=== PATIENT | male | born 1960 | race Caucasian/White ===

== ENCOUNTER 2019-01-31 21:14 | Observation (INO) ==
[2019-01-31 22:12] LABS: Basophils % 0.2 %; Eosinophils # 0.4 K/mcL (0.0-0.6); Eosinophils % 3.1 %; Hematocrit 35.8 % (37.5-50.1); Hemoglobin 12.6 g/dL (12.9-16.9); Immature Granulocytes % 0.5 % (0-4); Lymphocytes # 2.2 K/mcL (0.6-4.6); Lymphocytes % 16.6 %; Mean Corpuscular HGB Conc 35.2 g/dL (31.6-35.5); Mean Corpuscular Hemoglobin 32.5 pg (28.0-33.3); Mean Corpuscular Volume 92.3 fL (83.0-100.0); Mean Platelet Volume 9.2 fL (9.4-12.4); Monocytes # 1.1 K/mcL (0.0-1.3); Monocytes % 8.2 %; Neutrophils # 9.4 K/mcL (1.6-8.9); Platelet Count 335 K/mcL (140-400); Red Blood Count 3.88 M/mcL (4.19-5.50); Red Cell Distribution Width 13.4 % (11.5-14.5); Segmented Neutrophils % 71.4 %; White Blood Count 13.2 K/mcL (4.3-11.1)
[2019-01-31] MEDS ORDERED: Isovue-370 500 ML BOTTLE IVP ONE (22:21)
[2019-01-31 22:22] LABS: Activated Partial Thrombo Time 47.1 Seconds (26.0-36.0)
[2019-01-31 22:25] LABS: INR 1.9; Prothrombin Time 21.2 Seconds (9.4-12.1)
--- NOTE | 2019-01-31 22:25 | Emergency Department Note ---
Disposition Clinical Impression: Acute kidney injury, History of deep vein thrombosis (DVT) of lower extremity Urinary tract infection Qualifiers: Urinary tract infection type: site unspecified Hematuria presence: with hematuria Qualified Code(s): N39.0 - Urinary tract infection, site not specified; R31.9 - Hematuria, unspecified Disposition: Admitted As Inpatient Condition: Good Time of Disposition: 01:39 General Adult HPI - General Chief complaint: ED General Medical Stated complaint: RLE pain (DVT)/ abd pain Time Seen by Provider: 01/31/19 21:32 Source: patient, family () Mode of arrival: ambulatory Limitations: no limitations Nursing Notes Reviewed: Yes Vital Signs Reviewed: Yes - History of Present Illness HPI Narrative: 58-year-old male history of hypertension and recent diagnosis of deep vein thrombosis in the right leg 1 week ago presents emergency department with continued pain as well as abdominal cramping. He has poor insight into his medical conditions. States a few weeks ago he had a stent placed in his kidney. Approximately 10 days ago develop leg swelling and was diagnosed with the deep vein thrombosis. He was admitted to the hospital and started on Xarelto. Over the past 3 days sees had abdominal cramping and chest discomfort with some shor tness of breath. Denies any injury or trauma. He says blood in his urine but this was a preceding the diagnosis of blood clot. Denies any hemoptysis, hematemesis or bloody stool. Reports family history of blood clots in his mother and sister but they have in he was never formally tested he reports. No history of cardiac ischemic disease. Former smoker 3 years ago. Patient has been on testosterone in the past and recently discontinued given the new blood clot. He follows with his primary care provider Dr. Gee. Pain Scale: 10 - Related Data Home Medications Medication Instructions Recorded Confirmed Aspirin Enteric Coated [Aspirin EC] 81 mg PO DAILY 12/19/15 01/25/19 Cholecalciferol (Vitamin D3) 10,000 unit PO DAILY 12/19/15 01/25/19 [Vitamin D3] Lisinopril [Zestril] 40 mg PO DAILY 12/19/15 01/25/19 SUMAtriptan Succinate [Imitrex] 100 mg PO DAILY PRN 12/19/15 01/25/19 Topiramate [Topamax] 25 mg PO HS 12/19/15 01/25/19 Citalopram Hydrobromide [Celexa] 40 mg PO DAILY 05/31/17 01/25/19 Gabapentin [Neurontin] 600 mg PO TID 05/31/17 01/25/19 Hydrochlorothiazide [Microzide] 12.5 mg PO DAILY 09/15/18 01/25/19 Omeprazole [PriLOSEC] 40 mg PO DAILY 09/15/18 01/25/19 Amlodipine Besylate 5 mg PO BID 01/23/19 01/25/19 BuPROPion XL (24 HR) [Wellbutrin 150 mg PO QAM 01/23/19 01/25/19 Xl] traZODone [TraZODone] 50 mg PO HS 01/23/19 01/25/19 Simvastatin [Zocor] 20 mg PO HS 01/24/19 01/25/19 Tiotropium [Spiriva] 18 mcg IH DAILY 01/24/19 01/25/19 Amitriptyline [Elavil] 25 mg PO HS 01/25/19 01/25/19 Previous Rx's Medication Instructions Recorded Rivaroxaban [Xarelto] 1 dose PO AD 30 Days pack 01/26/19 Allergies Allergy/AdvReac Type Severity Reaction Status Date / Time latex Allergy Hives Verified 01/24/19 20:34 Penicillins Allergy Hives Verified 01/24/19 20:34 All systems ED: reviewed and negative except as stated. Review of Systems: As Per HPI Constitutional: Denies: fever ENT ED: Denies: congestion Cardiovascular: Reports: chest pain Respiratory: Reports: dyspnea. Denies: cough Gastrointestinal: Reports: abdominal pain. Denies: nausea, vomiting, hematemesis, melena, hematochezia Genitourinary: Reports: hematuria Musculoskeletal: Reports: myalgia. Denies: back pain Hematological/Lymphatic: Reports: easy bleeding Past Medical History - Past Medical History Attestation: Yes The following information was validated with the patient. Source: patient Medical history: Reports: COPD, coronary artery disease, hypertension, kidney stones, migraine, renal disease, other Surgical history: Reports: appendectomy, arthroscopy, cholecystectomy, herniorrhaphy, orthopedic, other, vasectomy Psychiatric history: Reports: no psych history - Social History Smoking Status: Former smoker Smokeless Tobacco Status: No Alcohol use: Reports: none Drug use: Reports: none Physical Exam - General Limitations: no limitations General appearance: alert, in no apparent distress - Head Head exam: atraumatic, normocephalic, normal inspection - Eye Eye exam: Present: normal appearance, EOMI. Absent: scleral icterus - ENT ENT exam: normal exam, normal oropharynx, mucous membranes moist - Neck Neck exam: Present: normal inspection, full ROM, trachea midline - Chest Chest inspection: Present: normal inspection, symmetric chest wall rise. Absent: tenderness - Respiratory Respiratory exam: Present: normal lung sounds bilaterally. Absent: respiratory distress, wheezes - Cardiovascular Cardiovascular exam: Present: regular rate, normal rhythm, normal heart sounds - Expanded Cardiovascular Exam Peripheral pulses: 2+: radial (R), radial (L), dorsalis pedis (R), dorsalis pedis (L) - Abdominal Exam Abdominal exam: Present: soft, tenderness, normal bowel sounds. Absent: Non- Tender, distention, guarding, rebound, rigidity, ascites Abdominal tenderness: Present: diffuse - Extremities Exam Extremities exam: Present: normal inspection, full ROM, normal capillary refill, calf tenderness (Right). Absent: tenderness, pedal edema - Neurological Exam Neurological exam: Present: alert, oriented X3 - Psychiatric Psychiatric exam: Present: normal affect, normal mood - Skin Skin exam: Present: warm, dry, intact, normal color. Absent: rash, cyanosis, diaphoresis Course Course Narrative: Patient presents with complaints of pain for the past few days since starting Xarelto. Pains in the right chest wall and abdomen. Denies any G.I. bleed symptoms or injury. Concern for possible spontaneous bleed will obtain CT scan and blood work evaluation. He does have some obvious hematuria but states this was prior to his initiation of the anticoagulant. Disposition pending workup. - Reevaluation(s) Reevaluation #1: Review of his labs shows a mild leukocytosis. His urinalysis shows gross hematuria but there is some bacteria noted compared to urinalysis performed se veral days ago. Will treat with Levaquin at this time for possible urinary tract infection. Review the rest of his labs shows acute kidney injury. His creatinine significantly elevated at 2 does double from his baseline. This is likely prerenal he has been receiving fluids. At this time recommendation for admission. His abdominal cramping and chest discomfort with unknown etiology. CT scan the abdomen did not reveal any concern for intra-abdominal etiologies such as bleed. Recommendation for admission and continued monitoring. - Consultations Consultation #1: Spoke with on-call hospitalist sintia Lay to admit for acute kidney injury, history of deep vein thrombosis, ureteral stent and UTI. Requests for blood cultures and lactate. Recommendation for urology consultation on the floor Vital Signs Temperature 97.7 F 01/31/19 21:18 Pulse Rate 81 01/31/19 21:18 Respiratory Rate 20 01/31/19 21:18 Blood Pressure 127/74 01/31/19 21:18 O2 Sat by Pulse Oximetry 96 01/31/19 21:18 Temperature 97.7 F 01/31/19 21:18 Pulse Rate 81 01/31/19 21:18 Respiratory Rate 20 01/31/19 21:18 Blood Pressure 127/74 01/31/19 21:18 O2 Sat by Pulse Oximetry 96 01/31/19 21:18 Oxygen Delivery Oxygen Delivery Room Air Medical Decision Making - MDM Narrative Medical decision making narrative: Patient was discussed with my attending physician who agrees with ED management and final disposition. They independently evaluated the patient. Please refer to their attestation to this encounter for additional information. This note was generated by [employer] voice recognition software and as a result grammatical or spelling errors may occur using this program. - Medical Records Medical records reviewed: Yes I reviewed the patient's medical records. - Lab Data Lab results reviewed: Yes I reviewed the patient's lab results. Result diagrams: 01/31/19 21:47 01/31/19 21:47 Lab Results 01/31/19 01/31/19 01/31/19 Range/Units 21:47 21:47 21:47 WBC 13.2 H (4.3-11.1) K/mcL RBC 3.88 L (4.19-5.50) M/mcL Hgb 12.6 L (12.9-16.9) g/dL Hct 35.8 L (37.5-50.1) % MCV 92.3 (83.0-100.0) fL MCH 32.5 (28.0-33.3) pg MCHC 35.2 (31.6-35.5) g/dL RDW 13.4 (11.5-14.5) % Plt Count 335 (140-400) K/mcL MPV 9.2 L (9.4-12.4) fL Immature Gran % 0.5 (0-4) % Seg Neutrophils % 71.4 % Lymphocytes % 16.6 % Monocytes % 8.2 % Eosinophils % 3.1 % Basophils % 0.2 % Neutrophils # 9.4 H (1.6-8.9) K/mcL Lymphocytes # 2.2 (0.6-4.6) K/mcL Monocytes # 1.1 (0.0-1.3) K/mcL Eosinophils # 0.4 (0.0-0.6) K/mcL Basophils # 0.0 (0.0-0.2) K/mcL PT 21.2 H D (9.4-12.1) Seconds INR 1.9 D APTT 47.1 H (26.0-36.0) Seconds Sodium 135 L (136-145) mEq/L Potassium 4.1 (3.5-5.1) mEq/L Chloride 102 (98-107) mEq/L Carbon Dioxide 22 L (23-29) mEq/L BUN 43 H (6-20) mg/dL Creatinine 2.06 H (0.70-1.30) mg/dL Est GFR ( Amer) 40 L (> 60) Est GFR (Non-Af Amer) 33 L (> 60) BUN/Creatinine Ratio 21 (6-26) Glucose 119 H (70-105) mg/dL Calculated Osmolality 292 (280-300) Calcium 9.8 (8.6-10.3) mg/dL Total Bilirubin 0.3 (0.3-1.0) mg/dL AST 20 (13-39) Units/L ALT 25 (7-52) Units/L Alkaline Phosphatase 66 (34-104) Units/L Serum Total Protein 7.3 (6.4-8.9) g/dL Albumin 4.6 (3.5-5.7) g/dL Globulin 2.7 (2.4-3.5) g/dL Albumin/Globulin Ratio 1.7 (1.1-2.2) Ur Specimen Adequacy Urine Color (Yellow) Urine Clarity (Clear) Urine pH (5.0-8.0) pH Units Ur Specific [place] (1.010-1.025) Urine Protein (Neg-Trace) mg/dL Urine Glucose (UA) (Normal) mg/dL Urine Ketones (Negative) mg/dL Urine Blood (Negative) Urine Nitrite (Negative) Urine Bilirubin (Negative) Urine Urobilinogen (Normal) mg/dL Ur Leukocyte Esterase (Negative) Urine Microscopic RBC (0-3) per hpf Urine Microscopic WBC (0-3) per hpf Urine Bacteria (None-Few) per hpf Ur Culture Indicated? (NO) 01/31/19 Range/Units 21:47 WBC (4.3-11.1) K/mcL RBC (4.19-5.50) M/mcL Hgb (12.9-16.9) g/dL Hct (37.5-50.1) % MCV (83.0-100.0) fL MCH (28.0-33.3) pg MCHC (31.6-35.5) g/dL RDW (11.5-14.5) % Plt Count (140-400) K/mcL MPV (9.4-12.4) fL Immature Gran % (0-4) % Seg Neutrophils % % Lymphocytes % % Monocytes % % Eosinophils % % Basophils % % Neutrophils # (1.6-8.9) K/mcL Lymphocytes # (0.6-4.6) K/mcL Monocytes # (0.0-1.3) K/mcL Eosinophils # (0.0-0.6) K/mcL Basophils # (0.0-0.2) K/mcL PT (9.4-12.1) Seconds INR APTT (26.0-36.0) Seconds Sodium (136-145) mEq/L Potassium (3.5-5.1) mEq/L Chloride (98-107) mEq/L Carbon Dioxide (23-29) mEq/L BUN (6-20) mg/dL Creatinine (0.70-1.30) mg/dL Est GFR ( Amer) (> 60) Est GFR (Non-Af Amer) (> 60) BUN/Creatinine Ratio (6-26) Glucose (70-105) mg/dL Calculated Osmolality (280-300) Calcium (8.6-10.3) mg/dL Total Bilirubin (0.3-1.0) mg/dL AST (13-39) Units/L ALT (7-52) Units/L Alkaline Phosphatase (34-104) Units/L Serum Total Protein (6.4-8.9) g/dL Albumin (3.5-5.7) g/dL Globulin (2.4-3.5) g/dL Albumin/Globulin Ratio (1.1-2.2) Ur Specimen Adequacy See below A Urine Color Red A (Yellow) Urine Clarity Turbid A (Clear) Urine pH 5.5 (5.0-8.0) pH Units Ur Specific [place] 1.013 (1.010-1.025) Urine Protein >=300 H (Neg-Trace) mg/dL Urine Glucose (UA) Normal (Normal) mg/dL Urine Ketones Trace H (Negative) mg/dL Urine Blood Large H (Negative) Urine Nitrite Negative (Negative) Urine Bilirubin Moderate H (Negative) Urine Urobilinogen Normal (Normal) mg/dL Ur Leukocyte Esterase Small H (Negative) Urine Microscopic RBC TNTC H (0-3) per hpf Urine Microscopic WBC 15-30 H (0-3) per hpf Urine Bacteria Moderate H (None-Few) per hpf Ur Culture Indicated? YES A (NO) - Radiology Data Radiology results reviewed: Yes I reviewed the patient's radiology results. Abdomen/Pelvis CT 01/31/19 22:21 IMPRESSION: Left ureteral stent in place. Left nephrolithiasis. D/ / Roz Gonzalez Cha, MD / Roz Gonzalez Cha, MD Interpreting Provider: Roz Gonzalez Cha, MD Chest CT 01/31/19 22:22 IMPRESSION: No acute intrathoracic process identified. D/ / Roz Gonzalez Cha, MD / Roz Gonzalez Cha, MD Interpreting Provider: Roz Gonzalez Cha, MD - EKG Data EKG #1 EKG attestation: Yes I reviewed and interpreted this EKG. EKG results narrative: EKG performed 2251 normal sinus rhythm 72 beats per minute, normal axis, good R wave progression, no ST elevation or depression. Compared to prior EKG performed 09/13/2017 which shows similar consistent findings. No acute ischemic changes.
[2019-01-31 22:31] LABS: Albumin 4.6 g/dL (3.5-5.7); Albumin/Globulin Ratio 1.7 (1.1-2.2); Bilirubin,Total 0.3 mg/dL (0.3-1.0); Calcium 9.8 mg/dL (8.6-10.3); Globulin 2.7 g/dL (2.4-3.5); Potassium 4.1 mEq/L (3.5-5.1); Total Protein 7.3 g/dL (6.4-8.9)
[2019-01-31] MEDS ORDERED: 0.9 % Sodium Chloride 1,000 ML IVC ONE (22:45)
[2019-01-31 22:50] LABS: Bilirubin,Urine Moderate (Negative); Blood,Urine Large (Negative); Clarity,Urine Turbid (Clear); Color,Urine Red (Yellow); Glucose,Urine (UA) Normal (Normal); Ketones,Urine Trace mg/dL (Negative); Leukocyte Esterase,Urine Small (Negative); Nitrite,Urine Negative (Negative); PH,Urine 5.5 pH Units (5.0-8.0); Protein,Urine >=300 mg/dL (Neg-Trace); Specific Gravity,Urine 1.013 (1.010-1.025); Urobilinogen,Urine Normal (Normal)
[2019-01-31 22:51] LABS: Bacteria,Urine Moderate per hpf (None-Few)
[2019-01-31 22:52] LABS: RBC,Urine TNTC per hpf (0-3); WBC,Urine 15-30 per hpf (0-3)
[2019-01-31] MEDS ORDERED: Levofloxacin 750 MG/150 ML 750 MG/150 ML BAG IVPB ONE (23:26)
[2019-02-01] MEDS ORDERED: *HR* Morphine 2 MG/ML SYRINGE IVP ONE (00:21)
--- NOTE | 2019-02-01 01:37 | Emergency Department Note ---
Disposition Clinical Impression: Acute kidney injury, History of deep vein thrombosis (DVT) of lower extremity Urinary tract infection Qualifiers: Urinary tract infection type: site unspecified Hematuria presence: with hematuria Qualified Code(s): N39.0 - Urinary tract infection, site not specified Disposition: Admitted As Inpatient Condition: Good Time of Disposition: 01:39 General Adult HPI - General Chief complaint: ED General Medical Stated complaint: RLE pain (DVT)/ abd pain Time Seen by Provider: 01/31/19 21:32 Source: patient, family () Mode of arrival: ambulatory Limitations: no limitations Nursing Notes Reviewed: Yes Vital Signs Reviewed: Yes - History of Present Illness Pain Scale: 10 - Related Data Home Medications Medication Instructions Recorded Confirmed Aspirin Enteric Coated [Aspirin EC] 81 mg PO DAILY 12/19/15 02/01/19 Cholecalciferol (Vitamin D3) 10,000 unit PO DAILY 12/19/15 01/25/19 [Vitamin D3] Lisinopril [Zestril] 40 mg PO DAILY 12/19/15 02/01/19 SUMAtriptan Succinate [Imitrex] 100 mg PO DAILY PRN 12/19/15 02/01/19 Topiramate [Topamax] 25 mg PO HS 12/19/15 02/01/19 Citalopram Hydrobromide [Celexa] 40 mg PO DAILY 05/31/17 02/01/19 Gabapentin [Neurontin] 600 mg PO TID 05/31/17 02/01/19 Hydrochlorothiazide [Microzide] 12.5 mg PO DAILY 09/15/18 02/01/19 Omeprazole [PriLOSEC] 40 mg PO DAILY 09/15/18 02/01/19 Amlodipine Besylate 5 mg PO BID 01/23/19 02/01/19 BuPROPion XL (24 HR) [Wellbutrin 150 mg PO QAM 01/23/19 02/01/19 Xl] traZODone [TraZODone] 50 mg PO HS 01/23/19 02/01/19 Simvastatin [Zocor] 20 mg PO HS 01/24/19 02/01/19 Tiotropium [Spiriva] 18 mcg IH DAILY 01/24/19 02/01/19 Amitriptyline [Elavil] 25 mg PO HS 06/13/19 06/20/19 Previous Rx's Medication Instructions Recorded Rivaroxaban [Xarelto] 1 dose PO AD 30 Days pack 01/26/19 Allergies Allergy/AdvReac Type Severity Reaction Status Date / Time latex Allergy Hives Verified 01/24/19 20:34 Penicillins Allergy Hives Verified 01/24/19 20:34 Constitutional: Denies: fever ENT ED: Denies: congestion Cardiovascular: Reports: chest pain Respiratory: Reports: dyspnea. Denies: cough Gastrointestinal: Reports: abdominal pain. Denies: nausea, vomiting, hematemesis, melena, hematochezia Genitourinary: Reports: hematuria Musculoskeletal: Reports: myalgia. Denies: back pain Hematological/Lymphatic: Reports: easy bleeding Past Medical History - Past Medical History Medical history: Reports: COPD, coronary artery disease, hypertension, kidney stones, migraine, renal disease, other Surgical history: Reports: appendectomy, arthroscopy, cholecystectomy, herniorrhaphy, orthopedic, other, vasectomy Psychiatric history: Reports: no psych history - Social History Smoking Status: Former smoker Smokeless Tobacco Status: No Alcohol use: Reports: none Drug use: Reports: none Physical Exam - General Limitations: no limitations General appearance: alert, in no apparent distress Course Vital Signs Temperature 97.7 F 01/31/19 21:18 Pulse Rate 81 01/31/19 21:18 Respiratory Rate 20 01/31/19 21:18 Blood Pressure 127/74 01/31/19 21:18 O2 Sat by Pulse Oximetry 96 01/31/19 21:18 Temperature 97.9 F 02/01/19 03:36 Pulse Rate 67 02/01/19 03:36 Respiratory Rate 16 02/01/19 03:36 Blood Pressure 115/50 02/01/19 03:36 O2 Sat by Pulse Oximetry 93 02/01/19 03:36 Oxygen Delivery Oxygen Delivery Room Air Medical Decision Making - Medical Records Medical records reviewed: Yes I reviewed the patient's medical records. - Lab Data Lab results reviewed: Yes I reviewed the patient's lab results. Result diagrams: 01/31/19 21:47 01/31/19 21:47 Lab Results 01/31/19 01/31/19 01/31/19 Range/Units 21:47 21:47 21:47 WBC 13.2 H (4.3-11.1) K/mcL RBC 3.88 L (4.19-5.50) M/mcL Hgb 12.6 L (12.9-16.9) g/dL Hct 35.8 L (37.5-50.1) % MCV 92.3 (83.0-100.0) fL MCH 32.5 (28.0-33.3) pg MCHC 35.2 (31.6-35.5) g/dL RDW 13.4 (11.5-14.5) % Plt Count 335 (140-400) K/mcL MPV 9.2 L (9.4-12.4) fL Immature Gran % 0.5 (0-4) % Seg Neutrophils % 71.4 % Lymphocytes % 16.6 % Monocytes % 8.2 % Eosinophils % 3.1 % Basophils % 0.2 % Neutrophils # 9.4 H (1.6-8.9) K/mcL Lymphocytes # 2.2 (0.6-4.6) K/mcL Monocytes # 1.1 (0.0-1.3) K/mcL Eosinophils # 0.4 (0.0-0.6) K/mcL Basophils # 0.0 (0.0-0.2) K/mcL PT 21.2 H D (9.4-12.1) Seconds INR 1.9 D APTT 47.1 H (26.0-36.0) Seconds Sodium 135 L (136-145) mEq/L Potassium 4.1 (3.5-5.1) mEq/L Chloride 102 (98-107) mEq/L Carbon Dioxide 22 L (23-29) mEq/L BUN 43 H (6-20) mg/dL Creatinine 2.06 H (0.70-1.30) mg/dL Est GFR ( Amer) 40 L (> 60) Est GFR (Non-Af Amer) 33 L (> 60) BUN/Creatinine Ratio 21 (6-26) Glucose 119 H (70-105) mg/dL Calculated Osmolality 292 (280-300) Lactic Acid (0.5-2.2) mmol/L Calcium 9.8 (8.6-10.3) mg/dL Total Bilirubin 0.3 (0.3-1.0) mg/dL AST 20 (13-39) Units/L ALT 25 (7-52) Units/L Alkaline Phosphatase 66 (34-104) Units/L Serum Total Protein 7.3 (6.4-8.9) g/dL Albumin 4.6 (3.5-5.7) g/dL Globulin 2.7 (2.4-3.5) g/dL Albumin/Globulin Ratio 1.7 (1.1-2.2) Ur Specimen Adequacy Urine Color (Yellow) Urine Clarity (Clear) Urine pH (5.0-8.0) pH Units Ur Specific [place] (1.010-1.025) Urine Protein (Neg-Trace) mg/dL Urine Glucose (UA) (Normal) mg/dL Urine Ketones (Negative) mg/dL Urine Blood (Negative) Urine Nitrite (Negative) Urine Bilirubin (Negative) Urine Urobilinogen (Normal) mg/dL Ur Leukocyte Esterase (Negative) Urine Microscopic RBC (0-3) per hpf Urine Microscopic WBC (0-3) per hpf Urine Bacteria (None-Few) per hpf Ur Culture Indicated? (NO) 01/31/19 02/01/19 Range/Units 21:47 01:12 WBC (4.3-11.1) K/mcL RBC (4.19-5.50) M/mcL Hgb (12.9-16.9) g/dL Hct (37.5-50.1) % MCV (83.0-100.0) fL MCH (28.0-33.3) pg MCHC (31.6-35.5) g/dL RDW (11.5-14.5) % Plt Count (140-400) K/mcL MPV (9.4-12.4) fL Immature Gran % (0-4) % Seg Neutrophils % % Lymphocytes % % Monocytes % % Eosinophils % % Basophils % % Neutrophils # (1.6-8.9) K/mcL Lymphocytes # (0.6-4.6) K/mcL Monocytes # (0.0-1.3) K/mcL Eosinophils # (0.0-0.6) K/mcL Basophils # (0.0-0.2) K/mcL PT (9.4-12.1) Seconds INR APTT (26.0-36.0) Seconds Sodium (136-145) mEq/L Potassium (3.5-5.1) mEq/L Chloride (98-107) mEq/L Carbon Dioxide (23-29) mEq/L BUN (6-20) mg/dL Creatinine (0.70-1.30) mg/dL Est GFR ( Amer) (> 60) Est GFR (Non-Af Amer) (> 60) BUN/Creatinine Ratio (6-26) Glucose (70-105) mg/dL Calculated Osmolality (280-300) Lactic Acid 0.6 (0.5-2.2) mmol/L Calcium (8.6-10.3) mg/dL Total Bilirubin (0.3-1.0) mg/dL AST (13-39) Units/L ALT (7-52) Units/L Alkaline Phosphatase (34-104) Units/L Serum Total Protein (6.4-8.9) g/dL Albumin (3.5-5.7) g/dL Globulin (2.4-3.5) g/dL Albumin/Globulin Ratio (1.1-2.2) Ur Specimen Adequacy See below A Urine Color Red A (Yellow) Urine Clarity Turbid A (Clear) Urine pH 5.5 (5.0-8.0) pH Units Ur Specific [place] 1.013 (1.010-1.025) Urine Protein >=300 H (Neg-Trace) mg/dL Urine Glucose (UA) Normal (Normal) mg/dL Urine Ketones Trace H (Negative) mg/dL Urine Blood Large H (Negative) Urine Nitrite Negative (Negative) Urine Bilirubin Moderate H (Negative) Urine Urobilinogen Normal (Normal) mg/dL Ur Leukocyte Esterase Small H (Negative) Urine Microscopic RBC TNTC H (0-3) per hpf Urine Microscopic WBC 15-30 H (0-3) per hpf Urine Bacteria Moderate H (None-Few) per hpf Ur Culture Indicated? YES A (NO) - Radiology Data Radiology results reviewed: Yes I reviewed the patient's radiology results. Abdomen/Pelvis CT 01/31/19 22:21 IMPRESSION: Left ureteral stent in place. Left nephrolithiasis. D/ / Roz Gonzalez Cha, MD / Roz Gonzalez Cha, MD Interpreting Provider: Roz Gonzalez Cha, MD Chest CT 01/31/19 22:22 IMPRESSION: No acute intrathoracic process identified. D/ / Roz Gonzalez Cha, MD / Roz Gonzalez Cha, MD Interpreting Provider: Roz Gonzalez Cha, MD - EKG Data EKG #1 EKG attestation: Yes I reviewed and interpreted this EKG. EKG results narrative: EKG shows normal sinus rhythm with ventricular rate is 72. No significant ST segment elevation or depression. No arrhythmia or ectopy. No significant change from prior EKG dated 09/13/2018. Critical Care Time Critical Care Time: No Attestation Statement - Attestation Attestation: I, Anthony Samaniego MD, personally evaluated this patient and discussed their management with the resident physician. I reviewed the resident's note and agree with the documented findings, medical decision making, and plan of care. I reviewed the residents documentation and agree with the residents assessment and plan of care. I have personally had face to face time with the patient. I personally supervised and was present for the billings/critical portions of the following procedures completed by the resident: EKG interpretation. 58-year-old male presents to the emergency department with multiple complaints. Patient had a left ureteral stent placed about one week ago. He was then diagnosed with a DVT in his right leg and was hospitalized for 2 days. He was started on Xarelto. He has had gross hematuria since the stent was placed which was before he started Xarelto. He complains of some right sided abdominal and chest discomfort for the past several days. Also increased pain in his leg. On examination patient is a well-developed well-nourished male in no acute distress. He is alert and oriented 3. There is no cyanosis or diaphoresis. Breath sounds are clear and equal bilaterally. Heart regular rate and rhythm. Abdomen is soft and nontender with normal bowel sounds. Labs reviewed. Patient found to have acute kidney injury with creatinine greater than 2.0. 5 days ago it was 0.9. Also has some UTI. CT of the chest abdomen pelvis without contrast was obtained and showed no acute abnormality. The left ureteral stent and left for lithiasis was noted. The hospitalist, Dr. Wade, was consulted and accepted admission of the patient.
[2019-02-01] MEDS ORDERED: Naloxone 0.4 MG/ML INJ IVP PRN (07:17)
[2019-02-01] MEDS ORDERED: OXYCODONE Oral CONC 10 MG/0.5 ML ORAL.SYG SL PRN ×2 (07:17)
[2019-02-01] MEDS ORDERED: Ondansetron 4 MG/2 ML VIAL IVP PRN (07:17)
[2019-02-01] MEDS ORDERED: SUMAtriptan succinate 50 MG TABLET PO PRN (07:19)
[2019-02-01 08:03] LABS: Basophils % 0.3 %; Eosinophils # 0.4 K/mcL (0.0-0.6); Eosinophils % 5.1 %; Hematocrit 36.3 % (37.5-50.1); Hemoglobin 12.2 g/dL (12.9-16.9); Immature Granulocytes % 0.5 % (0-4); Lymphocytes % 26.6 %; Mean Corpuscular HGB Conc 33.6 g/dL (31.6-35.5); Mean Corpuscular Hemoglobin 32.4 pg (28.0-33.3); Mean Corpuscular Volume 96.3 fL (83.0-100.0); Monocytes # 0.9 K/mcL (0.0-1.3); Monocytes % 11.4 %; Neutrophils # 4.3 K/mcL (1.6-8.9); Platelet Count 300 K/mcL (140-400); Red Blood Count 3.77 M/mcL (4.19-5.50); Red Cell Distribution Width 13.4 % (11.5-14.5); Segmented Neutrophils % 56.1 %; White Blood Count 7.6 K/mcL (4.3-11.1)
[2019-02-01 08:20] LABS: BUN/Creatinine Ratio 28 (6-26); Blood Urea Nitrogen 32 mg/dL (6-20); Calcium 9.4 mg/dL (8.6-10.3); Carbon Dioxide 26 mEq/L (23-29); Chloride 104 mEq/L (98-107); Glucose 107 mg/dL (70-105); Osmolality,Calculated 293 (280-300); Potassium 4.9 mEq/L (3.5-5.1); Sodium 138 mEq/L (136-145); eGFR For African Americans > 60 (> 60); eGFR For Non-African Americans > 60 (> 60)
--- NOTE | 2019-02-01 08:47 | Urology - Consult Note ---
<Mercedes Morales N - Last Filed: 02/01/19 08:45> Date of Encounter: 02/01/19 Time of Encounter: 08:30 - Assessment and Plan (1) Acute kidney injury Current Visit: Yes Status: Acute Assessment and plan: Patient is a 58-year-old male who presents with acute kidney injury. On admission serum creatinine was elevated 2.06 and GFR 33. Currently, patient is much improved serum creatinine at 1.15 and GFR greater than 60. Ureteral stent appears to be properly placed and functioning well. No further intervention indicated. (2) Renal calculi Current Visit: Yes Status: Chronic Assessment and plan: Patient is a 58-year-old male who presents 9 days status post left ureteroscopic stone extraction and placement of left ureteral stent with Dr. Ko. Left renal stone burden appears decreased on CT, and left ureteral stent is properly placed and well functioning. Vital signs are stable and afebrile. White blood cell count is reassuring. Renal function has returned to baseline with a GFR greater than 60. There is question as if patient may have a urinary tract infection. Patient was given IV Levaquin. Urine culture from 01/24/2019 is negative. There is no urologic surgical intervention anticipated at this time, and we will plan to continue with conservative management. Patient may be considered for discharge once pain is well-controlled. Urology CN:[facility] Consult date: 02/01/19 Reason for consult Urology: Other (JORGE; indwelling ureteral stent) Requesting physician: Malachi Cullen History of present illness: Patient is a 58-year-old male who presents with flank pain, acute kidney injury an indwelling left ureteral stent. Patient underwent a left ureteroscopic stone extraction, left retrograde pyelogram and left ureteral stent placement on 01/23/[address] Ko. There were no surgical complications, and patient was discharged. Patient returned to work postoperatively, and he experienced left flank and abdominal pain that ultimately brought him to the emergency department yesterday, 01/31/2019. Patient underwent a CT of the abdomen and pelvis revealing a properly placed left indwelling ureteral stent and decreased stone burden of the left kidney. On initial evaluation, patient's renal function was elevated with a serum creatinine of 2.06. Patient was admitted for further evaluation. On my examination, patient is sitting upright in bed in no apparent distress. Patient reports pain is well-controlled at present. Patient reports gross hematuria, but he denies any fever, chills, chest pain, dyspnea, dysuria or incontinence. It is of note, patient has a history of DVT, and he is on Xarelto. Patient has also undergone a reassuring chest CT. Past Med Surg Social Fam HX - Past Medical History Medical history: COPD, coronary artery disease, hypertension, kidney stones, migraine, renal disease, other Additional medical history: bladder stimulator, bleeding tendency, prostatitis, BPH, latex allergy tested 09/13/18 results pending Psychiatric history: depression - Past Surgical History Surgical History: appendectomy, arthroscopy, cholecystectomy, herniorrhaphy, orthopedic, other, vasectomy Additional surgical history: bladder stimulator, L knee,L shoulder, R hand extensor tendon repairs, insterstim placement, L orchiotomy, cardiac cath - no stents, hernia, appendix, gallbladder, vasectomy - Social History Smoking Status: Former smoker Smokeless Tobacco Status: No Alcohol use: none Drug use: none - Family History Mother Adopted: No Living Status: Age at : 78 Cause of : heart attack Hx Family Cardiac Disorders: Yes Hx Family Respiratory Disorders: Yes (COPD) Hx Family Cancer: Yes (stomach) Hx Family Genitourinary Disorders: No Hx Family Endocrine Disorder: No Hx Family Musculoskeletal Disorders: No Hx Family Neuromuscular Disorders: No Hx Family Neurologic Disorders: No Hx Family Autoimmune Disorders: No Hx Family Reproductive Disorders: No Father Adopted: No Living Status: Age at : 66 Cause of : heart attack Hx Family Cardiac Disorders: Yes Hx Family Respiratory Disorders: No Hx Family Cancer: Yes (skin) Hx Family GI Disorders: No Hx Family Genitourinary Disorders: No Hx Family Endocrine Disorder: Yes (DM) Hx Family Musculoskeletal Disorders: No Hx Family Neuromuscular Disorders: No Hx Family Neurologic Disorders: No Hx Family Autoimmune Disorders: No Medications and Allergies Aspirin Enteric Coated [Aspirin EC] 81 mg PO DAILY 12/19/15 [History] Cholecalciferol (Vitamin D3) [Vitamin D3] 10,000 unit PO DAILY 12/19/15 [History] Lisinopril [Zestril] 40 mg PO DAILY 12/19/15 [History] SUMAtriptan Succinate [Imitrex] 100 mg PO DAILY PRN 12/19/15 [History] Topiramate [Topamax] 25 mg PO HS 12/19/15 [History] Citalopram Hydrobromide [Celexa] 40 mg PO DAILY 05/31/17 [History] Gabapentin [Neurontin] 600 mg PO TID 05/31/17 [History] Hydrochlorothiazide [Microzide] 12.5 mg PO DAILY 09/15/18 [History] Omeprazole [PriLOSEC] 40 mg PO DAILY 09/15/18 [History] Amlodipine Besylate 5 mg PO BID 01/23/19 [History] BuPROPion XL (24 HR) [Wellbutrin Xl] 150 mg PO QAM 01/23/19 [History] traZODone [TraZODone] 50 mg PO HS PRN 01/23/19 [History] Simvastatin [Zocor] 20 mg PO HS 01/24/19 [History] Tiotropium [Spiriva] 18 mcg IH DAILY 01/24/19 [History] Amitriptyline [Elavil] 25 mg PO HS 01/25/19 [History] Rivaroxaban [Xarelto] 1 dose PO AD 30 Days pack 01/26/19 [Rx] Allergy/AdvReac Type Severity Reaction Status Date / Time latex Allergy Hives Verified 01/24/19 20:34 Penicillins Allergy Hives Verified 01/24/19 20:34 Review of Systems - Constitutional no chills, no fatigue, no fever(s) - EENT Nose, mouth and throat: no dizziness, no headache(s) - Cardiovascular no chest pain, no diaphoresis, no dyspnea - Respiratory no cough, no dyspnea - Gastrointestinal abdominal pain, no nausea, no vomiting - Genitourinary flank pain, hematuria, no difficulty urinating, no dysuria, no urinary freque ncy, no urinary hesitancy, no urinary incontinence, no urinary urgency - Musculoskeletal back pain, no muscle weakness - Integumentary no erythema, no rash - Neurological no confusion, no syncope - Psychiatric no anxiety, no confusion - Hematologic/Lymphatic easy bleeding, easy bruising - Allergic/Immunologic no throat swelling, no wheezing Exam Initial Vital Signs Temp Pulse Resp BP Pulse Ox 97.7 F 81 20 127/74 96 01/31/19 21:18 01/31/19 21:18 01/31/19 21:18 01/31/19 21:18 01/31/19 21:18 - General physical appearance Present: no distress, no pain - Eyes Present: PERRL, normal ocular movement - ENT Present: normal nares, no hearing loss, no congestion - Neck Present: no masses, trachea midline, no lymphadenopathy - Respiratory Present: normal respiratory effort - Cardiovascular Cardiovascular exam IM: RRR - Abdomen Abdomen: Present: soft, non tender. Absent: distended - Genitourinary other (No CVAT, urine is transparent fruit punch in bedside urinal) - Integumentary Present: no rash, no abnormal pigmentation - Neurologic Present: normal coordination - Musculoskeletal Present: other (Normal posture; no pedal edema) Urology Results - Labs 02/01/19 07:37 02/01/19 07:37 Abnormal lab results WBC 13.2 K/mcL (4.3-11.1) H 01/31/19 21:47 RBC 3.77 M/mcL (4.19-5.50) L 02/01/19 07:37 Hgb 12.2 g/dL (12.9-16.9) L 02/01/19 07:37 Hct 36.3 % (37.5-50.1) L 02/01/19 07:37 MPV 9.0 fL (9.4-12.4) L 02/01/19 07:37 9.4 K/mcL (1.6-8.9) H 01/31/19 21:47 PT 21.2 Seconds (9.4-12.1) H D 01/31/19 21:47 APTT 47.1 Seconds (26.0-36.0) H 01/31/19 21:47 Sodium 135 mEq/L (136-145) L 01/31/19 21:47 Carbon Dioxide 22 mEq/L (23-29) L 01/31/19 21:47 BUN 32 mg/dL (6-20) H 02/01/19 07:37 2.06 mg/dL (0.70-1.30) H 01/31/19 21:47 Est GFR ( Amer) 40 (> 60) L 01/31/19 21:47 Est GFR (Non-Af Amer) 33 (> 60) L 01/31/19 21:47 28 (6-26) H 02/01/19 07:37 Glucose 107 mg/dL (70-105) H 02/01/19 07:37 Ur Specimen Adequacy See below A 01/31/19 21:47 Red (Yellow) A 01/31/19 21:47 Turbid (Clear) A 01/31/19 21:47 >=300 mg/dL (Neg-Trace) H 01/31/19 21:47 Trace mg/dL (Negative) H 01/31/19 21:47 Large (Negative) H 01/31/19 21:47 Moderate (Negative) H 01/31/19 21:47 Ur Leukocyte Esterase Small (Negative) H 01/31/19 21:47 TNTC per hpf (0-3) H 01/31/19 21:47 15-30 per hpf (0-3) H 01/31/19 21:47 Moderate per hpf (None-Few) H 01/31/19 21:47 Ur Culture Indicated? YES (NO) A 01/31/19 21:47 Diabetes panel 01/31/19 02/01/19 Range/Units 21:47 07:37 Sodium 135 L 138 (136-145) mEq/L Potassium 4.1 4.9 (3.5-5.1) mEq/L Chloride 102 104 (98-107) mEq/L Carbon Dioxide 22 L 26 (23-29) mEq/L BUN 43 H 32 H (6-20) mg/dL Creatinine 2.06 H 1.15 (0.70-1.30) mg/dL Glucose 119 H 107 H (70-105) mg/dL Calcium 9.8 9.4 (8.6-10.3) mg/dL AST 20 (13-39) Units/L ALT 25 (7-52) Units/L Alkaline Phosphatase 66 (34-104) Units/L Albumin 4.6 (3.5-5.7) g/dL Calcium panel 01/31/19 02/01/19 Range/Units 21:47 07:37 Calcium 9.8 9.4 (8.6-10.3) mg/dL Albumin 4.6 (3.5-5.7) g/dL Pituitary panel 01/31/19 02/01/19 Range/Units 21:47 07:37 Sodium 135 L 138 (136-145) mEq/L Potassium 4.1 4.9 (3.5-5.1) mEq/L Chloride 102 104 (98-107) mEq/L Carbon Dioxide 22 L 26 (23-29) mEq/L BUN 43 H 32 H (6-20) mg/dL Creatinine 2.06 H 1.15 (0.70-1.30) mg/dL Glucose 119 H 107 H (70-105) mg/dL Calcium 9.8 9.4 (8.6-10.3) mg/dL Adrenal panel 01/31/19 02/01/19 Range/Units 21:47 07:37 Sodium 135 L 138 (136-145) mEq/L Potassium 4.1 4.9 (3.5-5.1) mEq/L Chloride 102 104 (98-107) mEq/L Carbon Dioxide 22 L 26 (23-29) mEq/L BUN 43 H 32 H (6-20) mg/dL Creatinine 2.06 H 1.15 (0.70-1.30) mg/dL Glucose 119 H 107 H (70-105) mg/dL Calcium 9.8 9.4 (8.6-10.3) mg/dL Total Bilirubin 0.3 (0.3-1.0) mg/dL AST 20 (13-39) Units/L ALT 25 (7-52) Units/L Alkaline Phosphatase 66 (34-104) Units/L Albumin 4.6 (3.5-5.7) g/dL All other labs normal. - Imaging CT scan - abdomen: report reviewed, image reviewed CT scan - pelvis: report reviewed, image reviewed Consult Discharge Plan - Plan Referrals: John Gee MD [Primary Care Provider] - <Shon Byers - Last Filed: 02/01/19 15:11> Date of Encounter: 02/01/19 - Assessment and Plan (1) Urinary tract infection Current Visit: Yes Status: Acute Qualifiers: Urinary tract infection type: acute cystitis Hematuria presence: with hematuria Qualified Code(s): N30.01 - Acute cystitis with hematuria (2) Renal calculi Current Visit: Yes Status: Chronic Assessment and plan: Seen and examined independently. Agree with findings of DEE Morales. Plan: No indications for surgical interventions at this time. Abx as per primary. F/U with Dr. Ko outpatient as scheduled. Exam Initial Vital Signs Temp Pulse Resp BP Pulse Ox 97.7 F 81 20 127/74 96 01/31/19 21:18 01/31/19 21:18 01/31/19 21:18 01/31/19 21:18 01/31/19 21:18 Urology Results - Labs 02/01/19 07:37 02/01/19 07:37 Abnormal lab results WBC 13.2 K/mcL (4.3-11.1) H 01/31/19 21:47 RBC 3.77 M/mcL (4.19-5.50) L 02/01/19 07:37 Hgb 12.2 g/dL (12.9-16.9) L 02/01/19 07:37 Hct 36.3 % (37.5-50.1) L 02/01/19 07:37 MPV 9.0 fL (9.4-12.4) L 02/01/19 07:37 9.4 K/mcL (1.6-8.9) H 01/31/19 21:47 PT 21.2 Seconds (9.4-12.1) H D 01/31/19 21:47 APTT 47.1 Seconds (26.0-36.0) H 01/31/19 21:47 Sodium 135 mEq/L (136-145) L 01/31/19 21:47 Carbon Dioxide 22 mEq/L (23-29) L 01/31/19 21:47 BUN 32 mg/dL (6-20) H 02/01/19 07:37 2.06 mg/dL (0.70-1.30) H 01/31/19 21:47 Est GFR ( Amer) 40 (> 60) L 01/31/19 21:47 Est GFR (Non-Af Amer) 33 (> 60) L 01/31/19 21:47 28 (6-26) H 02/01/19 07:37 Glucose 107 mg/dL (70-105) H 02/01/19 07:37 Ur Specimen Adequacy See below A 01/31/19 21:47 Red (Yellow) A 01/31/19 21:47 Turbid (Clear) A 01/31/19 21:47 >=300 mg/dL (Neg-Trace) H 01/31/19 21:47 Trace mg/dL (Negative) H 01/31/19 21:47 Large (Negative) H 01/31/19 21:47 Moderate (Negative) H 01/31/19 21:47 Ur Leukocyte Esterase Small (Negative) H 01/31/19 21:47 TNTC per hpf (0-3) H 01/31/19 21:47 15-30 per hpf (0-3) H 01/31/19 21:47 Moderate per hpf (None-Few) H 01/31/19 21:47 Ur Culture Indicated? YES (NO) A 01/31/19 21:47 Diabetes panel 01/31/19 02/01/19 Range/Units 21:47 07:37 Sodium 135 L 138 (136-145) mEq/L Potassium 4.1 4.9 (3.5-5.1) mEq/L Chloride 102 104 (98-107) mEq/L Carbon Dioxide 22 L 26 (23-29) mEq/L BUN 43 H 32 H (6-20) mg/dL Creatinine 2.06 H 1.15 (0.70-1.30) mg/dL Glucose 119 H 107 H (70-105) mg/dL Calcium 9.8 9.4 (8.6-10.3) mg/dL AST 20 (13-39) Units/L ALT 25 (7-52) Units/L Alkaline Phosphatase 66 (34-104) Units/L Albumin 4.6 (3.5-5.7) g/dL Calcium panel 01/31/19 02/01/19 Range/Units 21:47 07:37 Calcium 9.8 9.4 (8.6-10.3) mg/dL Albumin 4.6 (3.5-5.7) g/dL Pituitary panel 01/31/19 02/01/19 Range/Units 21:47 07:37 Sodium 135 L 138 (136-145) mEq/L Potassium 4.1 4.9 (3.5-5.1) mEq/L Chloride 102 104 (98-107) mEq/L Carbon Dioxide 22 L 26 (23-29) mEq/L BUN 43 H 32 H (6-20) mg/dL Creatinine 2.06 H 1.15 (0.70-1.30) mg/dL Glucose 119 H 107 H (70-105) mg/dL Calcium 9.8 9.4 (8.6-10.3) mg/dL Adrenal panel 01/31/19 02/01/19 Range/Units 21:47 07:37 Sodium 135 L 138 (136-145) mEq/L Potassium 4.1 4.9 (3.5-5.1) mEq/L Chloride 102 104 (98-107) mEq/L Carbon Dioxide 22 L 26 (23-29) mEq/L BUN 43 H 32 H (6-20) mg/dL Creatinine 2.06 H 1.15 (0.70-1.30) mg/dL Glucose 119 H 107 H (70-105) mg/dL Calcium 9.8 9.4 (8.6-10.3) mg/dL Total Bilirubin 0.3 (0.3-1.0) mg/dL AST 20 (13-39) Units/L ALT 25 (7-52) Units/L Alkaline Phosphatase 66 (34-104) Units/L Albumin 4.6 (3.5-5.7) g/dL All other labs normal.
[2019-02-01] MEDS: Gabapentin 300 MG CAPSULE PO SCH ×3 (09:32→21:09)
[2019-02-01] MEDS: Ringers Solution, Lactated 1,000 ML IVC SCH ×2 (09:32→17:18)
--- NOTE | 2019-02-01 12:24 | Electrocardiograph Report ---
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
--- NOTE | 2019-02-01 12:43 | Internal Med History&Physical ---
Date of Encounter: 02/01/19 Time of Encounter: 07:00 Internal Medicine - H&P: HPI Chief complaint: Left-sided abdominal pain Admitted From: Home History of present illness: Mr. Tapia is a 58 year old male with history of nephrolithiasis status post left ureteric stent in 01/23, recently diagnosed lower extremity DVT on Xarelto, hypertension, CAD, COPD, presented to the ED with left-sided abdominal pain. Started yesterday, intermittent, lasting few mins-hours when it comes on, crampy in nature. No aggravating/relieving factors. He denies any dysuria but did have intermittent hematuria associated with it. He is relatively symptom-free a t this point. Otherwise denies any fever/chills or nausea/vomiting. No chest pain, shortness of breath, cough, sputum production, orthopnea, PND, or worsening leg swelling. No change in bowel habits, diarrhea, or bright red blood per rectum. Denies any joint pain or new rash. In the ED, he was afebrile and hemodynamically stable. I work showed leukocytosis of 13.2, creatinine of 2.06 (baseline 0.9), and urinalysis positive for blood as well as leukocyte esterase with moderate amount of bacteria. CT thorax/abdomen/pelvis showed a left ureteral stent was in place and, other than mild fullness of the left ureter, no hydronephrosis was appreciated. No findings compatible with pyelonephritis was also seen. Patient was given IV fluid, IV Levaquin, and admitted for further management with urology consultation. Past Med Surg Social Fam HX - Past Medical History Medical history: COPD, coronary artery disease, hypertension, kidney stones, migraine, other Additional medical history: bladder stimulator, bleeding tendency, prostatitis, BPH, latex allergy tested 09/13/18 results pending. DVT lower extremity Psychiatric history: depression - Past Surgical History Surgical History: appendectomy, arthroscopy, cholecystectomy, herniorrhaphy, orthopedic, other, vasectomy Additional surgical history: bladder stimulator, L knee,L shoulder, R hand extensor tendon repairs, insterstim placement, L orchiotomy, cardiac cath - no stents, hernia, appendix, gallbladder, vasectomy - Social History Smoking Status: Former smoker Smokeless Tobacco Status: No Alcohol use: none Drug use: none - Family History Mother Adopted: No Living Status: Age at : 78 Cause of : heart attack Hx Family Cardiac Disorders: Yes Hx Family Respiratory Disorders: Yes (COPD) Hx Family Cancer: Yes (stomach) Hx Family Genitourinary Disorders: No Hx Family Endocrine Disorder: No Hx Family Musculoskeletal Disorders: No Hx Family Neuromuscular Disorders: No Hx Family Neurologic Disorders: No Hx Family Autoimmune Disorders: No Hx Family Reproductive Disorders: No Father Adopted: No Living Status: Age at : 66 Cause of : heart attack Hx Family Cardiac Disorders: Yes Hx Family Respiratory Disorders: No Hx Family Cancer: Yes (skin) Hx Family GI Disorders: No Hx Family Genitourinary Disorders: No Hx Family Endocrine Disorder: Yes (DM) Hx Family Musculoskeletal Disorders: No Hx Family Neuromuscular Disorders: No Hx Family Neurologic Disorders: No Hx Family Autoimmune Disorders: No Internal Medicine - H&P: Meds Aspirin Enteric Coated [Aspirin EC] 81 mg PO DAILY 12/19/15 [History] Cholecalciferol (Vitamin D3) [Vitamin D3] 10,000 unit PO DAILY 12/19/15 [History] Lisinopril [Zestril] 40 mg PO DAILY 12/19/15 [History] SUMAtriptan Succinate [Imitrex] 100 mg PO DAILY PRN 12/19/15 [History] Topiramate [Topamax] 25 mg PO HS 12/19/15 [History] Citalopram Hydrobromide [Celexa] 40 mg PO DAILY 05/31/17 [History] Gabapentin [Neurontin] 600 mg PO TID 05/31/17 [History] Hydrochlorothiazide [Microzide] 12.5 mg PO DAILY 09/15/18 [History] Omeprazole [PriLOSEC] 40 mg PO DAILY 09/15/18 [History] Amlodipine Besylate 5 mg PO BID 01/23/19 [History] BuPROPion XL (24 HR) [Wellbutrin Xl] 150 mg PO QAM 01/23/19 [History] traZODone [TraZODone] 50 mg PO HS PRN 01/23/19 [History] Simvastatin [Zocor] 20 mg PO HS 01/24/19 [History] Tiotropium [Spiriva] 18 mcg IH DAILY 01/24/19 [History] Amitriptyline [Elavil] 25 mg PO HS 01/25/19 [History] Rivaroxaban [Xarelto] 1 dose PO AD 30 Days pack 01/26/19 [Rx] Allergy/AdvReac Type Severity Reaction Status Date / Time latex Allergy Hives Verified 01/24/19 20:34 Penicillins Allergy Hives Verified 01/24/19 20:34 All Systems PM: A 10-system review of systems was performed and is negative for pertinent find ings except as documented above in the HPI. - Constitutional Vitals: Temp Pulse Resp BP Pulse Ox 97.8 F 62 16 116/66 95 02/01/19 11:00 02/01/19 11:00 02/01/19 11:00 02/01/19 11:00 02/01/19 11:00 Exam: General: Alert and oriented, not in acute distress. HEENT:EOMI, pupils equal, round and reactive. Cardiovascular:Normal S1 & S2, No JVD. Pulse regular. Lungs: clear to auscultation, no wheezes/rales Abdomen:Soft, non-tender, no rigidity. : No CVA tenderness Extremities:No deformity or swelling Neurological:Normal cognition and motor skills. Non-focal Skin:Normal color, no rash, no lesions. Pulses:Carotid and radial pulses normal +2. Rest of the physical exam is non contributory Internal Med - H&P Results - Labs CBC & Chem 7: 02/01/19 07:37 02/01/19 07:37 Labs: Short CBC 01/31/19 02/01/19 Range/Units 21:47 07:37 WBC 13.2 H 7.6 (4.3-11.1) K/mcL Hgb 12.6 L 12.2 L (12.9-16.9) g/dL Hct 35.8 L 36.3 L (37.5-50.1) % Plt Count 335 300 (140-400) K/mcL Neutrophils # 9.4 H 4.3 (1.6-8.9) K/mcL BMP 01/31/19 02/01/19 21:47 07:37 Sodium 135 L 138 Potassium 4.1 4.9 Chloride 102 104 Carbon Dioxide 22 L 26 BUN 43 H 32 H Creatinine 2.06 H 1.15 Glucose 119 H 107 H Calcium 9.8 9.4 Liver Function 01/31/19 Range/Units 21:47 Total Bilirubin 0.3 (0.3-1.0) mg/dL AST 20 (13-39) Units/L ALT 25 (7-52) Units/L Alkaline Phosphatase 66 (34-104) Units/L Albumin 4.6 (3.5-5.7) g/dL Urine 01/31/19 Range/Units 21:47 Urine Color Red A (Yellow) Urine Clarity Turbid A (Clear) Urine pH 5.5 (5.0-8.0) pH Units Ur Specific [place] 1.013 (1.010-1.025) Urine Protein >=300 H (Neg-Trace) mg/dL Urine Glucose (UA) Normal (Normal) mg/dL - Impressions ITS Impressions Abdomen/Pelvis CT 01/31/19 22:21 IMPRESSION: Left ureteral stent in place. Left nephrolithiasis. D/ / Roz Gonzalez Cha, MD / Roz Gonzalez Cha, MD Interpreting Provider: Roz Gonzalez Cha, MD Chest CT 01/31/19 22:22 IMPRESSION: No acute intrathoracic process identified. D/ / Roz Gonzalez Cha, MD / Roz Gonzalez Cha, MD Interpreting Provider: Roz Gonzalez Cha, MD - Assessment and Plan (1) Urinary tract infection Current Visit: Yes Status: Acute Assessment and plan: Stented with left-sided abdominal pain and was found to have UTI as well as JORGE also had leukocytosis on presentation Imaging studies confirmed properly positioned left ureteric stent as well as the absence of pyelonephritis or hydronephrosis Started on Levaquin, continue Follow-up on blood and urine cultures Qualifiers: Urinary tract infection type: acute cystitis Hematuria presence: with hematuria Qualified Code(s): N30.01 - Acute cystitis with hematuria (2) Acute kidney injury Current Visit: Yes Status: Acute Assessment and plan: Associated with underlying UTI. No obstructive uropathy identified on imaging studies. Treat infection as above Continue IV fluid Urology input appreciated (3) CAD (coronary artery disease) Current Visit: Yes Status: Chronic Assessment and plan: Resume home meds Qualifiers: Coronary Disease-Associated Artery/Lesion type: [place] artery [place] vs. transplanted heart: [place] heart Associated angina: without angina Qualified Code(s): I25.10 - Atherosclerotic heart disease of [place] coronary artery without angina pectoris (4) History of deep vein thrombosis (DVT) of lower extremity Current Visit: Yes Status: Chronic Assessment and plan: Resume Xarelto (5) Hypertension Current Visit: No Status: Chronic Assessment and plan: holding home meds Qualifiers: Hypertension type: essential hypertension Qualified Code(s): I10 - Essential (primary) hypertension - Time Spent With Patient Total time spent is greater than 50% in coordination of care (as documented) at patient's floor/unit and/or counseling patient: 25 - 35 minutes
[2019-02-01] MEDS: BuPROPion XL (24 HR) 150 MG TABLET PO SCH (15:27)
[2019-02-01] MEDS ORDERED: traZODone 50 MG TABLET PO PRN (21:00)
[2019-02-01] MEDS ORDERED: Topiramate 25 MG TABLET PO SCH (21:00)
[2019-02-01] MEDS: *HR* Rivaroxaban 15 MG TABLET PO SCH (21:09)
[2019-02-01] MEDS ORDERED: Levofloxacin 750 MG/150 ML 750 MG/150 ML BAG IVPB SCH (23:00)
[2019-02-02 07:14] LABS: Basophils % 0.4 %; Eosinophils # 0.4 K/mcL (0.0-0.6); Eosinophils % 5.1 %; Hematocrit 36.4 % (37.5-50.1); Hemoglobin 12.5 g/dL (12.9-16.9); Immature Granulocytes % 0.3 % (0-4); Lymphocytes # 1.9 K/mcL (0.6-4.6); Lymphocytes % 25.7 %; Mean Corpuscular HGB Conc 34.3 g/dL (31.6-35.5); Mean Corpuscular Hemoglobin 32.7 pg (28.0-33.3); Mean Corpuscular Volume 95.3 fL (83.0-100.0); Mean Platelet Volume 9.3 fL (9.4-12.4); Monocytes # 0.8 K/mcL (0.0-1.3); Monocytes % 10.9 %; Neutrophils # 4.2 K/mcL (1.6-8.9); Platelet Count 308 K/mcL (140-400); Red Blood Count 3.82 M/mcL (4.19-5.50); Red Cell Distribution Width 13.3 % (11.5-14.5); Segmented Neutrophils % 57.6 %; White Blood Count 7.3 K/mcL (4.3-11.1)
[2019-02-02 07:30] LABS: BUN/Creatinine Ratio 23 (6-26); Blood Urea Nitrogen 25 mg/dL (6-20); Calcium 9.7 mg/dL (8.6-10.3); Carbon Dioxide 28 mEq/L (23-29); Chloride 104 mEq/L (98-107); Glucose 108 mg/dL (70-105); Magnesium 2.1 mg/dL (1.6-2.6); Osmolality,Calculated 289 (280-300); Sodium 137 mEq/L (136-145); eGFR For African Americans > 60 (> 60); eGFR For Non-African Americans > 60 (> 60)
[2019-02-02] MEDS: *HR* Rivaroxaban 15 MG TABLET PO SCH (07:46)
[2019-02-02] MEDS: Gabapentin 300 MG CAPSULE PO SCH (07:46)
[2019-02-02] MEDS: BuPROPion XL (24 HR) 150 MG TABLET PO SCH (07:46)
--- NOTE | 2019-02-02 08:46 | Urology Progress Note ---
Date of Encounter: 02/02/19 Time of Encounter: 08:45 - Assessment and Plan (1) Hematuria Current Visit: No Status: Acute Assessment and plan: hematuria is minimal and not concerning. ok with discharge from standpoint. pt already scheduled for stent removal in office next week. Qualifiers: Hematuria type: asymptomatic microscopic Qualified Code(s): R31.21 - Asymptomatic microscopic hematuria Progress Note Narrative: pt states stable left flank pain. leg swelling decreased. Objective Initial Vital Signs Temp Pulse Resp BP Pulse Ox 97.7 F 81 20 127/74 96 01/31/19 21:18 01/31/19 21:18 01/31/19 21:18 01/31/19 21:18 01/31/19 21:18 - General physical appearance Present: no distress - Additional Exam voided urine very light hematuria. - Labs 02/02/19 06:47 02/02/19 06:47 Diabetes panel 02/02/19 Range/Units 06:47 Sodium 137 (136-145) mEq/L Potassium 5.0 (3.5-5.1) mEq/L Chloride 104 (98-107) mEq/L Carbon Dioxide 28 (23-29) mEq/L BUN 25 H (6-20) mg/dL Creatinine 1.07 (0.70-1.30) mg/dL Glucose 108 H (70-105) mg/dL Calcium 9.7 (8.6-10.3) mg/dL Calcium panel 02/02/19 Range/Units 06:47 Calcium 9.7 (8.6-10.3) mg/dL Pituitary panel 02/02/19 Range/Units 06:47 Sodium 137 (136-145) mEq/L Potassium 5.0 (3.5-5.1) mEq/L Chloride 104 (98-107) mEq/L Carbon Dioxide 28 (23-29) mEq/L BUN 25 H (6-20) mg/dL Creatinine 1.07 (0.70-1.30) mg/dL Glucose 108 H (70-105) mg/dL Calcium 9.7 (8.6-10.3) mg/dL Adrenal panel 02/02/19 Range/Units 06:47 Sodium 137 (136-145) mEq/L Potassium 5.0 (3.5-5.1) mEq/L Chloride 104 (98-107) mEq/L Carbon Dioxide 28 (23-29) mEq/L BUN 25 H (6-20) mg/dL Creatinine 1.07 (0.70-1.30) mg/dL Glucose 108 H (70-105) mg/dL Calcium 9.7 (8.6-10.3) mg/dL Consult Discharge Plan - Plan Referrals: John Gee MD [Primary Care Provider] -
[2019-02-02] MEDS ORDERED: Aspirin Enteric Coated 81 MG Tablet PO SCH (09:00)
[2019-02-02 10:03] VITALS: BP 145/78
--- NOTE | 2019-02-02 10:34 | Discharge Summary ---
- NOTES TO OUTPATIENT PROVIDER Notes to Outpatient Provider: Follow up with urology next week to remove ureteral stent. Complete a total of 7 days of abx. HCTZ/SAMY-i on hold due to kidney injury, resume at the discretion of PCP. Orders not resulted at time of discharge: Pending orders 01/31/19 21:47 Culture,Urine [RM] Stat 02/01/19 01:12 Culture,Blood [BC] Stat Date of Encounter: 02/02/19 Time of Encounter: 07:45 - Discharge Diagnosis (1) Acute kidney injury Priority: Primary Status: Acute (2) Urinary tract infection Priority: Secondary Status: Acute Qualifiers: Urinary tract infection type: acute cystitis Hematuria presence: with hemat uria Qualified Code(s): N30.01 - Acute cystitis with hematuria (3) CAD (coronary artery disease) Priority: Secondary Status: Chronic Qualifiers: Coronary Disease-Associated Artery/Lesion type: [place] artery [place] vs. transplanted heart: [place] heart Associated angina: without angina Qualified Code(s): I25.10 - Atherosclerotic heart disease of [place] coronary artery without angina pectoris (4) History of deep vein thrombosis (DVT) of lower extremity Priority: Secondary Status: Chronic (5) Hypertension Priority: Secondary Status: Chronic Qualifiers: Hypertension type: essential hypertension Qualified Code(s): I10 - Essential (primary) hypertension Hospital course: Mr. Tapia is a 58 year old male with history of nephrolithiasis status post left ureteric stent in 01/23, recently diagnosed lower extremity DVT on Xarelto, hypertension, CAD, COPD, who was admitted for L sided abdominal pain and was found to be in JORGE with possible UTI. Imaging studies showed that ureteral stent was in place and there was no hydronephrosis or pyelonephritis. Although patient had microscopic hematuria on urinalysis, his hemoglobin remained stable and did not have any hemodynamic instability hence Xarelto was continued. Managed in consultation with urology and patient clinically improved with IV antibiotics and IV fluid. He will be discharged home on a total of 7 days of abx with Urology follow up next week for stent removal. Emphasized importance of adequate hydration. HCTZ and lisinopril are on hold due to kidney injury. Discharge discussed with: patient, nurse, business operations consultant - Time Spent with Patient Total time spent providing and/or coordinating discharge services: 28 mins - Discharge Medications Prescriptions: New levoFLOXacin [Levaquin] 750 mg PO DAILY #5 tablet Continued Cholecalciferol (Vitamin D3) [Vitamin D3] 10,000 unit PO DAILY SUMAtriptan Succinate [Imitrex] 100 mg PO DAILY PRN PRN Reason: Migraine Headache Topiramate [Topamax] 25 mg PO HS Aspirin Enteric Coated [Aspirin EC] 81 mg PO DAILY Gabapentin [Neurontin] 600 mg PO TID Citalopram Hydrobromide [Celexa] 40 mg PO DAILY Omeprazole [PriLOSEC] 40 mg PO DAILY Amlodipine Besylate 5 mg PO BID BuPROPion XL (24 HR) [Wellbutrin Xl] 150 mg PO QAM traZODone [TraZODone] 50 mg PO HS PRN PRN Reason: Insomnia Simvastatin [Zocor] 20 mg PO HS Tiotropium [Spiriva] 18 mcg IH DAILY Amitriptyline [Elavil] 25 mg PO HS Rivaroxaban [Xarelto] 1 dose PO AD 30 Days pack Discontinued Lisinopril [Zestril] 40 mg PO DAILY Hydrochlorothiazide [Microzide] 12.5 mg PO DAILY Home Medications: Aspirin Enteric Coated [Aspirin EC] 81 mg PO DAILY 12/19/15 [History] Cholecalciferol (Vitamin D3) [Vitamin D3] 10,000 unit PO DAILY 12/19/15 [History] SUMAtriptan Succinate [Imitrex] 100 mg PO DAILY PRN 12/19/15 [History] Topiramate [Topamax] 25 mg PO HS 12/19/15 [History] Citalopram Hydrobromide [Celexa] 40 mg PO DAILY 05/31/17 [History] Gabapentin [Neurontin] 600 mg PO TID 05/31/17 [History] Omeprazole [PriLOSEC] 40 mg PO DAILY 09/15/18 [History] Amlodipine Besylate 5 mg PO BID 01/23/19 [History] BuPROPion XL (24 HR) [Wellbutrin Xl] 150 mg PO QAM 01/23/19 [History] traZODone [TraZODone] 50 mg PO HS PRN 01/23/19 [History] Simvastatin [Zocor] 20 mg PO HS 01/24/19 [History] Tiotropium [Spiriva] 18 mcg IH DAILY 01/24/19 [History] Amitriptyline [Elavil] 25 mg PO HS 01/25/19 [History] Rivaroxaban [Xarelto] 1 dose PO AD 30 Days pack 01/26/19 [Rx] levoFLOXacin [Levaquin] 750 mg PO DAILY #5 tablet 02/02/19 [Rx] Allergies/Adverse Reactions: Allergy/AdvReac Type Severity Reaction Status Date / Time latex Allergy Hives Verified 01/24/19 20:34 Penicillins Allergy Hives Verified 01/24/19 20:34 Date of admission: 02/01/19 01:30 Primary care physician: John Gee MD Consults: 02/01/19 00:28 Consult to Urology [CONS] Stat Consulting Provider: Urology [facility] Reason for Consult: JORGE, history of stent, Time Notified: 00:29 Call Completed: Yes - Constitutional Vitals: Temp Pulse Resp BP Pulse Ox 97.7 F 62 16 145/78 96 02/02/19 10:02 02/02/19 10:02 02/02/19 10:02 02/02/19 10:02 02/02/19 10:02 Exam: General: Alert and oriented, not in acute distress. Cardiovascular:Normal S1 & S2, No JVD. Pulse regular. Lungs: clear to auscultation, no wheezes/rales Abdomen:Soft, non-tender, no rigidity. : No CVA tenderness Extremities:No deformity or swelling Neurological:Normal cognition and motor skills. Non-focal - Patient Status Disposition: Home, Self-Care Condition: Good Functional capacity at discharge: independent ambulation Overall status at discharge: patient is progressing back to baseline - Discharge Instructions Instructions: Urinary Tract Infection in Men (DC) Follow Up With: John Gee MD [Primary Care Provider] - Faraz Ko MD [Partnered Physician] - Forms: ED Satisfaction Letter, Work/School Release - Diet and Activity Activity: resume usual activities as tolerated Diet: advance to your usual diet
== END 2019-02-02 10:53 | disposition home or self-care (01) ==
LOC: EMEROOARM 21:14 → 3ANU 21:14 → SUATTDRO 02-01 01:30 → 3ANU 02-01 02:10
PROVIDERS: ADMIT Internal Medicine; ATTEND Internal Medicine